=== PATIENT | female | born 1935 | race Caucasian/White ===

== ENCOUNTER 2017-04-04 12:03 | Inpatient (IN) | payer OTHER ==
[~2017-04-04] VITALS: Ht 152.4 cm; Wt 49.9 kg
[~2017-04-04 12:03] MED LIST: DURAGESIC1 EAC1 TD; FLAGYL500MG PO; LEVAQUIN500 MG PO; LOSARTAN POTASS50 MG; PERCOCET 5-3251 EACH; SYNTHROID50 MCG; ZOCOR20 MG
== END 2017-04-29 18:05 | disposition home or self-care (01) | DRG 330 ==
LOC: ER 12:03 → SURG 04-05 01:26 → SURH 04-17 15:30
PROVIDERS: Colon & Rectal Surgery
PROC: 02HV33Z Insertion of Infusion Device into Superior Vena Cava, Percutaneous Approach (ICD-10-PCS; 2017-04-06)
PROC: 3E0336Z Introduction of Nutritional Substance into Peripheral Vein, Percutaneous Approach (ICD-10-PCS; 2017-04-07)
PROC: 0DN80ZZ Release Small Intestine, Open Approach (ICD-10-PCS; 2017-04-13)
PROC: 0DJ08ZZ Inspection of Upper Intestinal Tract, Via Natural or Artificial Opening Endoscopic (ICD-10-PCS; 2017-04-13)
PROC: 0D1B0Z4 Bypass Ileum to Cutaneous, Open Approach (ICD-10-PCS; principal; 2017-04-13 21:45)
PROC: 30233N1 Transfusion of Nonautologous Red Blood Cells into Peripheral Vein, Percutaneous Approach (ICD-10-PCS; 2017-04-16)
PROC: B54MZZZ Ultrasonography of Right Upper Extremity Veins (ICD-10-PCS; 2017-04-22)
DX: K56.51 Intestinal adhesions [bands], with partial obstruction (principal); C19 Malignant neoplasm of rectosigmoid junction; I82.B11 Acute embolism and thrombosis of right subclavian vein; I82.A11 Acute embolism and thrombosis of right axillary vein; T82.868A Thrombosis due to vascular prosthetic devices, implants and grafts, initial encounter; K63.2 Fistula of intestine; I11.9 Hypertensive heart disease without heart failure; E03.8 Other specified hypothyroidism; E78.4 Other hyperlipidemia; R63.0 Anorexia; D64.89 Other specified anemias; E87.6 Hypokalemia; D69.59 Other secondary thrombocytopenia